=== PATIENT | male | born 1980 | race Caucasian/White ===

== ENCOUNTER 2020-05-31 00:29 | Outpatient (CLI) | payer OTHER, SELFPAY ==
[2020-05-31 18:02] LABS: SARS-CoV-2 RNA PCR Negative
== END 2020-05-31 00:30 | disposition home or self-care (01) ==
LOC: ANHCOVIDDT 00:30
PROVIDERS: PCP Internal Medicine; Visit Provider Surgery
DX: Z01.812 Encounter for preprocedural laboratory examination (principal); Z20.828 Contact with and (suspected) exposure to other viral communicable diseases
CPT/HCPCS: 87635; C9803; U0003

== ENCOUNTER 2020-06-03 00:36 | Day surgery (SDC) | payer OTHER, SELFPAY ==
[2020-05-29 15:39] VITALS: BMI 34.9
[2020-06-03] VITALS (8 sets, daily range): BP systolic 118–147; BP diastolic 70–88; PULSE 48–67; RESP 12–17; TEMP 36.3–36.4; O2SAT 98–100
[2020-06-03] MEDS: LACTATED RINGERS 1,000 ML 30 ML IV CONT ×2 (06:39→08:46)
[2020-06-03] MEDS: KETOROLAC 15 MG/ML VIAL (*BKC) IV PUSH (06:39)
[2020-06-03] MEDS: ACETAMINOPHEN 500 MG TABLET 1000 MG PO (06:39)
--- NOTE | 2020-06-03 06:56 | P.PNAN_ITS ---
Anes - Initial Pre Proc Eval Procedure: Operation Date: 06/03/20 07:30 Proposed Procedures p Rectal Exam Under Anesthesia, Possible Fistulotomy, Possible Drainage of Inderjit Anal Abscess on Right Side - Hermann Hagen MD Date/Time: 06/03/20 06:56 Surgeon: Hermann Hagen MD Pre Op Diagnosis: inderjit anal abscess Patient Data Age: 39 Gender: M Height: 6 ft 1 in Weight: 118.8 kg Last Vital Signs Temp 36.4 C 06/03/20 06:26 Pulse 67 06/03/20 06:26 Resp 16 06/03/20 06:26 BP 141/88 H 06/03/20 06:26 Pulse Ox 99 06/03/20 06:26 Allergies Allergy/AdvReac Type Severity Reaction Status Date / Time IODINE CONTRAST Allergy Mild Hives / Uncoded 06/03/20 06:19 Red Face Home Medications Medication Instructions Recorded Confirmed Type amoxicillin 875 mg-potassium 1 tablet PO Q12H #6 tablet 05/22/20 06/03/20 Rx clavulanate 125 mg tablet metronidazole 500 mg tablet 500 mg PO Q8H #21 tablet 05/22/20 06/03/20 Rx acetaminophen [Tylenol] 325 - 650 mg PO DIRECTED PRN 05/29/20 06/03/20 Histo ry Patient hx anesthesia problems: none Family hx anesthesia problems: none PMFSH Surgical History Surgical History Hx of appendectomy Family History Family History Grandparent Diabetes mellitus Social History Social History Smoking status: Never smoker Alcohol intake: current Substance use: never Spiritual care concerns: No Anes - Eval Final PreProcedure Day of Procedure 06/03/20 06:56 Patient weight: obese Heart: regular rate and rhythm Lungs: clear to auscultation Airway: Mallampati scale class II Neurological: alert and oriented Last oral intake: >/= 8 hours ASA classification: II Emergent: no Anesthetic plan: proceed Anesthesia type and monitoring: general ETT and standard monitoring Informed Consent: The patient's anesthetic plan and its attendant risks and benefits were discussed with the patient/family/POA. Questions were solicited and answers provided to the satisfaction of the patient/family/POA.
--- NOTE | 2020-06-03 07:24 | WPDHPUPDATE1 ---
History and Physical Update Update Date/Time: 06/03/20 07:24 History and Physical has been reviewed, including an updated exam of the patient. There are NO changes in the patient's condition. Risks, benefits, and alternatives have been discussed and questions answered. Patient agrees to proceed with procedure.
[2020-06-03] MEDS: ceFAZolin 2 GM/D5W 50 ML 2 GM/50 ML BAG IVPB (07:29)
[2020-06-03] MEDS: BUPIVACAINE/EPINEPHRINE 0.5% 10 ML VIAL 30 ML INFILTRATE (08:02)
[2020-06-03] MEDS: METHYLENE BLUE 0.5% INJ 10 ML AMPULE 20 ML IRRIGATION (08:03)
--- NOTE | 2020-06-03 08:49 | PM.PROC ---
Procedure Note - Detailed Date of procedure: 06/03/20 Pre-op diagnosis: inderjit anal abscess Perianal abscess possible right-sided fistula Post-op diagnosis: other (Right perianal fistula) Procedure performed: Examination under anesthesia and anal fistulotomy x1 Description of procedure: Patient was brought to the operating room and placed in the lithotomy position after induction of adequate general anesthesia by the [place] anesthesia. Time-out was performed confirming patient and site of surgery being the anal area. Following this I did a complete external and internal examination externally the patient still had a small opening draining a small amount of yellowish pus about the 10 o'clock position right lateral area. Internally there was no significant internal hemorrhoids no obvious internal opening of the fistula at the time I examined the area circumferentially. Following this I have placed a rectal retractors in and expanded this exposing the right side of the anal opening. Following this using a 18 gauge Angiocath plastic catheter on a 10 cc syringe with half-strength methylene blue I inserted the catheter into the opening that is external about 2 cm distal to the dentate line. The 1st time I tried injecting it just came back at us. In time we are repositioned so that I could see a little bit more anteriorly on the internal surface of the rectum at this time I could see a small trail of bluish dye coming from the mucosal surface. Following this I used a rectal probe to insert into the opening and placed the right to area of the gland internally where the blue dye head extruded. I then used Bovie cautery to completely open the fistula using cutting cautery current cutting down to the probe that was within the tunnel of the fistula. We opened this completely from outside to inside. Hemostasis was achieved. Local anesthetic using 0.5% Marcaine was injected along the tract and deep to the tract. We waited for 2 minutes every checked and hemostasis still seemed to be good and I felt that this surgery is complete. Estimated blood loss approximately 2 cc. Patient was taken recovery room in good condition. Implants: None Anesthesia: GETA Surgeon: Hermann Hagen MD Scrum Project Manager: KYRA Leiva, OR 1st assist Estimated blood loss (mL): 2 Drains: No Packing: No Pathology: none sent Complications: No immediate complications Condition: stable Disposition: PACU Findings: The opening on the right side of the anal skin connected by a tunnel to an anal gland in the right anterior position. (Fistulotomy was performed).
== END 2020-06-03 10:25 | disposition home or self-care (01) ==
PROVIDERS: PCP Internal Medicine; Visit Provider Surgery
PROC: (CPT 46270; principal; 2020-06-03 07:30)
DX: K60.3 Anal fistula (principal)
CPT/HCPCS: 46270; 87635; A9270; C9803; J0690; J1100; J1885; J2250; J2405; J2704; J7120; Q9968; U0003

== ENCOUNTER 2020-07-13 19:09 | Emergency (ER) | payer OTHER, SELFPAY ==
--- NOTE | ~2020-07-13 | XR_ITS ---
EXAMINATION: XR chest 2V DATE: 07/13/2020 20:02 INDICATION: Near syncope. TECHNIQUE: Frontal and lateral views of the chest were obtained. COMPARISON: Chest single view 01/03/2009 FINDINGS: The chest demonstrates clear lungs without pneumonia, pleural effusion, or pneumothorax. Th e heart size is normal. IMPRESSION: 1. No acute cardiopulmonary disease. Reviewed, dictated and finalized at location A. ICAL DOCUMENTATION CLERK
[2020-07-13 19:12] VITALS: BP 148/86; PULSE 62; RESP 20; TEMP 36.2; O2SAT 100
--- NOTE | 2020-07-13 19:29 | ED.GENADULT ---
HPI - General Adult General Chief complaint: Unspecified Stated complaint: doesn't feel well Time Seen by Provider: 07/13/20 19:29 Source: patient Mode of arrival: ambulatory Limitations: no limitations History of Present Illness HPI narrative: Patient is a 39-year-old male with a history of recurrent abscess, fistula, who presents for evaluation lightheadedness, near syncopal event. Patient reportedly was in the car driving home with his family from his son soccer game when he suddenly became lightheaded, nauseated, had a feeling of cold run from his feet into his head. Patient denied overt chest pain, states he did feel slightly short of breath and anxious before symptoms resolved on their own for approximately 1 minute. Patient states he felt lightheaded and like he may pass out but did not ever lose consciousness. Patient reports he has a history of anxiety, he was recently placed on duloxetine by his primary care physician on Wednesday. Patient denies any recent illnesses. Patient also taking Flagyl for recurrent abscesses for which he follows with Dr. Hagen. Patient denies any fever, chills, chest pain. He denies current shortness of breath. He denies history of heart problems. He denies any lower extremity pain, swelling, numbness. Patient denies current headache or vision changes. No difficulty with ambulation. Related Data Home Medications Medication Instructions Recorded Confirmed acetaminophen [Tylenol] 325 - 650 mg PO DIRECTED PRN 05/29/20 07/09/20 zolpidem 07/13/20 Allergies Allergy/AdvReac Type Severity Reaction Status Date / Time IODINE CONTRAST Allergy Mild Hives / Uncoded 07/09/20 09:02 Red Face Review of Systems Review of Systems: Narrative: CONSTITUTIONAL: Denies fever, chills, or sweats. EYES: Denies visual changes, redness, or discharge. ENT: Denies rhinorrhea, congestion, sore throat, or otalgia. CARDIOVASCULAR: Denies chest pain, reports palpitations with earlier episode, denies leg edema RESPIRATORY: Denies cough or dyspnea. GASTROINTESTINAL: Denies abdominal pain, reports earlier nausea, now resolved GENITOURINARY: Denies dysuria or hematuria. SKIN: Denies rash or itching. MUSCULOSKELETAL: Denies back pain, joint pain, or myalgia. NEUROLOGIC: Denies headache, numbness, or weakness. PSYCHIATRIC: Reports history of anxiety PMFSH Past Medical History Medical History Anal fistula Surgical History Surgical History Hx of appendectomy Perianal abscess Family History Family History (Reviewed 07/09/20 @ 09:02 by Holly Taveras [facility]) Grandparent Diabetes mellitus Social History Social History (Reviewed 07/09/20 @ 09:02 by Holly Taveras [facility]) Alcohol intake: current Substance use: never Gender identity (if verbalized by the patient): Male Spiritual care concerns: No Exam Narrative: Exam Narrative: GENERAL: Awake, alert, conversant, anxious HEAD: Normocephalic, atraumatic. EYES: PERRLA and EOMI. ENT: Nares clear, no rhinorrhea or epistaxis. Mucous membranes moist. NECK: Supple. CHEST: No respiratory distress, breathing even and non labored HEART: Regular rate, sinus rhythm ABDOMEN:Non distended, non tender EXTREMITIES: Normal range of motion. No edema. SKIN: Warm, dry, no rash. NEURO:No focal deficits. Alert and oriented x3. Finger to nose intact bilaterally. EOMs intact without nystagmus. No facial droop/asymmetry noted bilaterally. Grimace intact. Intact sensation in face. Hearing intact bilaterally. Shoulder shrug intact. Strength 5/5 bilateral upper extremities. Strength 5/5 bilateral lower extremities. Reflexes 2+ patellar. Heel to marquez intact bilaterally. Ambulatory with a narrow based, steady gait, no ataxia. Course Vital Signs Vital signs: Vital Signs Temperature 36.2 C L 07/13/20 19:12 Pulse Rate 62 07/13/20 19:12 Respiratory Rate
--- NOTE | 2020-07-13 19:45 | ECG_ITS ---
Measurements Intervals [place] Rate: 56 P: 21 [place]: 157 QRS: 11 QRSD: 119 T: 27 QT: 427 QTc: 415 Interpretive Statements SINUS BRADYCARDIA INTRAVENTRICULAR CONDUCTION DELAY NONSPECIFIC T-WAVE ABNORMALITY- ANTEROLATERAL LEADS BASELINE WANDER- I, II, III, AVL, AVF, V1-V3 BORDERLINE ECG Electronically Signed On 07-14-2020 7:53:43 [employer] by Gaurav Garcia D.O.
--- NOTE | 2020-07-13 20:24 | PC.NURSE ---
Patient's bedside glucose is 105.
[2020-07-13 20:29] LABS: Glucose Point of Care 105 (65-105)
[2020-07-13 20:40] LABS: Basophils Absolute Auto 0.1 K/mm3 (0.0-0.1); Basophils Percent Auto 0.6 % (0.2-1.2); Eosinophils Absolute Auto 0.1 K/mm3 (0-0.3); Hematocrit 44.3 % (42.0-52.0); Hemoglobin 15.4 g/dL (14.0-18.0); Immature Granulocyte Absolute 0.04 K/mm3 (0.00-0.031); Immature Granulocyte Percent A 0.5 % (0-0.5); Lymphocytes Absolute Auto 2.19 K/mm3 (0.9-3.2); Lymphocytes Percent Auto 28.2 % (18.3-44.2); Mean Corpuscular HGB Conc 34.8 g/dl (32-36); Mean Corpuscular Hemoglobin 29.3 pg (26-34); Mean Corpuscular Volume 84.4 fl (80-100); Mean Platelet Volume 11.2 fl (7.4-10.4); Monocytes Absolute Auto 0.5 K/mm3 (0.1-0.6); Monocytes Percent Auto 6.6 % (2.6-8.5); Neutrophils Absolute Auto 4.9 K/mm3 (1.3-6.7); Neutrophils Percent Auto 63.1 % (45.5-73.1); Platelet Count Result 222 k/mm3 (150-375); Red Blood Count 5.25 M/mm3 (4.6-6.20); Red Cell Distribution Width 13.1 % (11.5-14.5); White Blood Count 7.8 K/mm3 (4.5-10.0)
[2020-07-13 20:45] LABS: INR 1.1; Prothrombin Time 14.5 Seconds (11.1-14.7)
[2020-07-13 20:46] LABS: Partial Thromboplastin Time 30.5 SECONDS (22.3-36.8)
[2020-07-13 20:47] LABS: Anion Gap 13 mmol/L (8-16); Blood Urea Nitrogen 10 mg/dL (9-20); Calcium 9.5 mg/dL (8.4-10.2); Carbon Dioxide 25 mmol/L (22-30); Chloride 103 mmol/L (98-107); Estimated CRCL calculation 125 ml/min; Estimated Glomerular Filt Rate > 60; Glucose 111 mg/dL (75-110); Potassium 3.4 mmol/L (3.4-5.0); Sodium 141 mmol/L (137-145)
[2020-07-13 20:58] LABS: D Dimer 0.27 ug/mL (<0.48); Troponin I < 0.012 ng/mL (0.000-0.034)
[2020-07-13 21:43] VITALS: BP 127/70; PULSE 49; RESP 22; O2SAT 97
[2020-07-13 22:49] LABS: Troponin I < 0.012 ng/mL (0.000-0.034)
[2020-07-13 23:40] VITALS: BP 110/67; PULSE 55; RESP 20; O2SAT 97
== END 2020-07-13 23:35 | disposition home or self-care (01) ==
PROVIDERS: Emergency Provider Emergency Medicine; PCP Internal Medicine
DX: R42 Dizziness and giddiness (principal); R55 Syncope and collapse; R00.1 Bradycardia, unspecified; I45.9 Conduction disorder, unspecified; R94.31 Abnormal electrocardiogram [ECG] [EKG]
CPT/HCPCS: 36415; 71046; 80048; 82948; 84484; 85025; 85380; 85610; 85730; 93005; 99284

== ENCOUNTER 2022-08-10 15:52 | Emergency (ER) | payer OTHER, SELFPAY ==
[2022-08-10 15:59] VITALS: BP 144/97; PULSE 64; RESP 18; TEMP 36.2; O2SAT 100
[2022-08-10 16:26] VITALS: BP 154/89; PULSE 74
[2022-08-10 16:26] LABS: Glucose Point of Care 266 mg/dl (65-105)
[2022-08-10 16:27] VITALS: BP 156/92; PULSE 82
[2022-08-10 16:28] VITALS: BP 171/95; PULSE 67
--- NOTE | 2022-08-10 16:56 | ED.DIZZY ---
HPI - Dizziness General Chief Complaint: Dizziness Stated Complaint: LIGHT HEADED Time Seen by Provider: 08/10/22 16:20 Source: patient Mode of arrival: ambulatory Limitations: no limitations History of Present Illness HPI Narrative: Mr. Perez is a 41-year-old male patient presenting to the clinic today with complaints nasal congestion and lightheadedness/near syncope that started this morning. He also notes that he has been fatigued. States he was at work when he felt lightheaded and had to sit down. States he only eats 1 meal per day. He did drink a large soda today. No history of diabetes or hypertension. Blood pressure is 154/89 and 171/95 in the clinic today. He denies any shortness of breath, chest pain, headache, or visual changes. The only medication he is currently taking is Cymbalta. Related Data Allergies Allergy/AdvReac Type Severity Reaction Status Date / Time IODINE CONTRAST Allergy Mild Hives / Uncoded 08/10/22 16:37 Red Face Review of Systems Review of Systems: Pertinent positives per HPI. Patient denies any fever, chills, rash, headache, visual changes, cough, runny nose, sore throat, shortness of breath, chest pain, palpitations, nausea, vomiting, diarrhea, constipation, abdominal pain, or any urinary issues. [facility] Past Medical History Medical History Anal fistula Surgical History Surgical History Hx of appendectomy Perianal abscess Family History Family History Grandparent Diabetes mellitus Social History Social History Smoking status: Never smoker Alcohol intake: current Substance use: never Additional occupation/education comments: school principle Gender identity (if verbalized by the patient): Male Spiritual care concerns: No Comments At the time of my signature, I reviewed and agree with the nursing past medical, surgical, social, and family history. There is no relevant family history pertinent to the patient complaint. Exam Narrative: General: Well-developed, well nourished, in no apparent distress Head: Normocephalic, atraumatic Eyes: Pupils equally round and reactive to light bilaterally, EOM intact, sclera and conjunctive clear, no discharge, lids normal Ears: TMs intact and dull, ear canals clear, no drainage, grossly hearing normal. Nose: Nares patent, clear nasal discharge, no inflammation, no sinus tenderness. Mouth: Oropharynx without lesions or masses, good dentition, MMM. Tongue midline, even rise and fall of uvula Neck: Supple, trachea midline, no enlargement of anterior or posterior cervical nodes, no thyroid masses or goiter palpable. Cardio: Regular rate and rhythm, s1 and s2 normal, no murmur appreciated. Resp: Clear to auscultation bilaterally anteriorly and posteriorly, no rhonchi, rales, wheezing or rubs Musculoskeletal: No deformity, non-tender to palpation, grossly normal range of motion, muscle strength strong and equal, peripheral pulse strong, no edema, no cyanosis, normal gait and station Neuro: Alert and oriented x4 with normal speech, no focal deficits, cranial nerves I through XII intact, muscle strength 5 out of 5, sensation intact bilaterally Course Course Emergency Course: Portions of this record may have been created with voice recognition software. Level of Care: Express Care Visit Vital Signs Vital signs: Vital Signs Pulse Rate 74 08/10/22 16:26 Blood Pressure 154/89 H 08/10/22 16:26 Pulse Rate 67 08/10/22 16:28 Blood Pressure 171/95 H 08/10/22 16:28 Vital signs reviewed Transfer Transfered to: [place] Transportation: Other (Private car) Transfer rationale: New onset diabetes/hypertension/lightheadedness/fatigue/hyperglycemia/proteinuria/glycosuria Accepting physician: Kyara
== END 2022-08-10 17:00 | disposition short-term general hospital (02) ==
PROVIDERS: Emergency Provider Nurse Practitioner Family
DX: R73.9 Hyperglycemia, unspecified (principal); R80.9 Proteinuria, unspecified; R82.4 Acetonuria; R03.0 Elevated blood-pressure reading, without diagnosis of hypertension
CPT/HCPCS: 81003; 82948; 99212; G0463

== ENCOUNTER 2024-03-28 10:05 | Emergency (ER) | payer OTHER, SELFPAY ==
[2024-03-28 10:15] VITALS: BP 142/91; PULSE 57; RESP 16; TEMP 36.5; O2SAT 100
--- NOTE | 2024-03-28 10:25 | ED.GENADULT ---
HPI - General Adult General Chief complaint: Urogenital-Male Stated complaint: URINARY PRESSURE Time Seen by Provider: 03/28/24 10:27 Source: patient, RN notes reviewed and old records reviewed Mode of arrival: ambulatory Limitations: no limitations History of Present Illness HPI narrative: 43-year-old male to Express Care for complaint of lower right quadrant pain radiating to right flank, urinary pressure, urinary urgency, urinary retention x2 days. Patient endorses history of kidney stone to right side. Patient denies fever, nausea, vomiting, bowel changes, urinary incontinence, hematuria, chest pain, shortness of breath. Patient able to tolerate fluids by mouth. Patient hypertensive in triage; patient endorses history of hypertension. Respirations even and nonlabored. Patient in no acute distress. Related Data Home Medications Medication Instructions Recorded Confirmed blood sugar diagnostic (True 09/11/22 03/13/24 Metrix Glucose Test Strip) Allergies Allergy/AdvReac Type Severity Reaction Status Date / Time IODINE CONTRAST Allergy Mild Hives / Uncoded 10/12/23 13:58 Red Face Review of Systems Review of Systems: All systems reviewed & are unremarkable except as noted in HPI and below Constitutional: Constitutional: Reports no additional constitutional complaints Eyes: Eyes: Reports no additional eye complaints ENT: Reports system reviewed and no additional complaints, except as documented Cardiovascular: Cardiovascular: Reports no additional cardiovascular complaints, Denies chest pain and Denies dyspnea Respiratory: Respiratory: Reports no additional respiratory complaints, Denies cough and Denies dyspnea Gastrointestinal: Gastrointestinal: Reports as per HPI, Reports abdominal pain ( LRQ), Denies constipation, Denies diarrhea, Denies nausea and Denies vomiting Genitourinary: Genitourinary: Reports as per HPI, Denies hematuria, Reports flank pain ( right), Reports urinary frequency, Denies urinary incontinence and Reports urinary urgency Musculoskeletal: Musculoskeletal: Reports no additional musculoskeletal complaints Neurologic: Reports system reviewed and no additional complaints, except as documented Psychiatric: Psychiatric: Reports no additional psychiatric complaints PMFSH Past Medical History Medical History Anal fistula Anxiety Diabetes Dyslipidemia HTN (hypertension) Transaminitis Surgical History Surgical History Hx of appendectomy Perianal abscess Family History Family History Grandparent Diabetes mellitus Social History Social History Smoking status: Never smoker Alcohol intake: current Alcohol use details: rarely Substance use: current Other substance usage details: Gummies Last use: 3 mths ago - to relax Lack of Transportation: No Lack of Food: Never True Current Housing: I Have Housing Concerned About Future Housing: No Difficulty Paying Gas/Electric Bills: No Difficulty Paying for Meds: No Currently Unemployed: No Difficulty w/ Childcare or Family Care: No Living arrangements: with family Occupation/Education: occupation Additional occupation/education comments: school principle Gender identity (if verbalized by the patient): Male Spiritual care concerns: No Comments At the time of my signature, I reviewed and agree with the nursing past medical, surgical, social, and family history. There is no relevant family history pertinent to the patient complaint. Exam Const: General: cooperative, no acute distress, alert, uncomfortable, well groomed and well nourished Nutritional Appearance: well nourished Orientation/consciousness: patient oriented x3 Limitations: no limitations
[2024-03-28 11:00] LABS: EDUAAPPEAR Cloudy; EDUABILI Negative; EDUABLOOD 3+; EDUACOLOR1 Dark; EDUAGLUCOSE Negative; EDUAKETONE Negative; EDUALEUKO Negative; EDUANITRATE Negative; EDUAPH 5.5; EDUAPROTEIN 1+; EDUASPGRAVITY 1.025; EDUAUROBILI 0.2
== END 2024-03-28 10:50 | disposition home or self-care (01) ==
PROVIDERS: Emergency Provider Nurse Practitioner Family
DX: R39.15 Urgency of urination (principal); R10.9 Unspecified abdominal pain; Z87.442 Personal history of urinary calculi; E11.9 Type 2 diabetes mellitus without complications; E78.5 Hyperlipidemia, unspecified; I10 Essential (primary) hypertension
CPT/HCPCS: 81003; 87086; 99213; G0463

== ENCOUNTER 2024-04-11 06:50 | Day surgery (SDC) | payer OTHER, SELFPAY ==
[2024-03-31 08:33] VITALS: BMI 35.9
--- NOTE | 2024-04-04 12:49 | PM.HPGS ---
History of Present Illness History of Present Illness Consent: Risks, benefits, and alternatives have been discussed and questions answered. Patient agrees to proceed with procedure. Chief complaint: Screening for Neoplasm of Colon Narrative: Jack Perez III is a 43 year old male who is referred for colon cancer screening. Review of Systems Review of Systems: All systems reviewed & are unremarkable except as noted in HPI and below PMFSH Past Medical History Medical History Anal fistula Anxiety Diabetes Dyslipidemia HTN (hypertension) Transaminitis Surgical History Surgical History Hx of appendectomy Perianal abscess Family History Family History Grandparent Diabetes mellitus Social History Social History Smoking status: Never smoker Alcohol intake: current Alcohol use details: rarely Substance use: never Substance use type: does not use Other substance usage details: Gummies Last use: 3 mths ago - to relax Lack of Transportation: No Lack of Food: Never True Current Housing: I Have Housing Concerned About Future Housing: No Difficulty Paying Gas/Electric Bills: No Difficulty Paying for Meds: No Currently Unemployed: No Difficulty w/ Childcare or Family Care: No Living arrangements: with family Occupation/Education: occupation Additional occupation/education comments: school principle Gender identity (if verbalized by the patient): Male Spiritual care concerns: No Meds Home Medications and Allergies Home Medications Medication Instructions Recorded Confirmed Type blood sugar diagnostic (True 09/11/22 03/13/24 History Metrix Glucose Test Strip) atorvastatin 40 mg tablet 40 mg PO QHS #90 tabs 02/29/24 04/11/24 Rx duloxetine 30 mg capsule,delayed 30 mg PO DAILY #90 caps 03/08/24 04/11/24 Rx release lisinopril 10 mg tablet 10 mg PO DAILY #90 tabs 03/08/24 04/11/24 Rx metformin 500 mg tablet,extended 1,000 mg PO BID #360 tabs 03/22/24 04/11/24 Rx release 24 hr cephalexin 500 mg capsule 500 mg PO Q12H #14 caps 03/28/24 04/11/24 Rx Allergies Allergy/AdvReac Type Severity Reaction Status Date / Time IODINE CONTRAST Allergy Mild Hives / Uncoded 04/11/24 07:13 Red Face Exam Resp: Auscultation: clear to auscultation bilaterally Cardio: Rate: regular rate Rhythm: regular rhythm GI: GI Palp: Yes Soft to palpation and No Tenderness to palpation present (GI) Assessment and Plan Assessment and plan (1) Colon cancer screening: Code(s): Z12.11 - Encounter for screening for malignant neoplasm of colon Status: Acute Assessment and Plan: Colonoscopy with possible biopsy or polypectomy or cautery or injection of substances.
[2024-04-05 10:14] VITALS: BMI 35.4
--- NOTE | 2024-04-11 06:41 | P.PNAN_ITS ---
Anes - Initial Pre Proc Eval Procedure: Operation Date: 04/11/24 08:30 Proposed Procedures p Screening Colonoscopy - Harjit Campoverde MD Date/Time: 04/11/24 06:41 Surgeon: Harjit Campoverde MD Pre Op Diagnosis: Screening for Neoplasm of Colon Patient Data Age: 43 Gender: M Height: 1.88 m Weight: 125 kg Allergies Allergy/AdvReac Type Severity Reaction Status Date / Time IODINE CONTRAST Allergy Mild Hives / Uncoded 04/11/24 07:13 Red Face Home Medications Medication Instructions Recorded Confirmed Type blood sugar diagnostic (True 09/11/22 03/13/24 History Metrix Glucose Test Strip) atorvastatin 40 mg tablet 40 mg PO QHS #90 tabs 02/29/24 04/11/24 Rx duloxetine 30 mg capsule,delayed 30 mg PO DAILY #90 caps 03/08/24 04/11/24 Rx release lisinopril 10 mg tablet 10 mg PO DAILY #90 tabs 03/08/24 04/11/24 Rx metformin 500 mg tablet,extended 1,000 mg PO BID #360 tabs 03/22/24 04/11/24 Rx release 24 hr cephalexin 500 mg capsule 500 mg PO Q12H #14 caps 03/28/24 04/11/24 Rx Patient hx anesthesia problems: none Family hx anesthesia problems: none Results Review: All pre-operative results and documents have been reviewed as part of the pre-op erative evaluation. [facility], [facility] Past Medical History Medical History Anal fistula Anxiety Diabetes Dyslipidemia HTN (hypertension) Transaminitis Surgical History Surgical History Hx of appendectomy Perianal abscess Family History Family History Grandparent Diabetes mellitus Social History Social History Smoking status: Never smoker Alcohol intake: current Alcohol use details: rarely Substance use: never Substance use type: does not use Other substance usage details: Gummies Last use: 3 mths ago - to relax Lack of Transportation: No Lack of Food: Never True Current Housing: I Have Housing Concerned About Future Housing: No Difficulty Paying Gas/Electric Bills: No Difficulty Paying for Meds: No Currently Unemployed: No Difficulty w/ Childcare or Family Care: No Living arrangements: with family Occupation/Education: occupation Additional occupation/education comments: school principle Gender identity (if verbalized by the patient): Male Spiritual care concerns: No Anes - Eval Final PreProcedure Day of Procedure 04/11/24 06:41 Patient weight: obese Heart: regular rate and rhythm Lungs: clear to auscultation Airway: Mallampati scale class II Neurological: alert and oriented Last oral intake: >/= 8 hours ASA classification: III Emergent: no Anesthetic plan: proceed Anesthesia type and monitoring: general GIVS and standard monitoring Results Review: All pre-operative results and documents have been reviewed as part of the pre- operative evaluation. Informed Consent: The patient's anesthetic plan and its attendant risks and benefits were dis cussed with the patient/family/POA. Questions were solicited and answers provided to the satisfaction of the patient/family/POA.
[2024-04-11 07:15] VITALS: BP 133/86; PULSE 60; RESP 18; TEMP 36.9; O2SAT 100
[2024-04-11] MEDS: LACTATED RINGERS 1,000 ML 150 ML IV CONT (07:22)
[2024-04-11 07:30] LABS: Glucose Point of Care 122 mg/dl (65-105)
[2024-04-11 08:29] VITALS: BP 99/62; PULSE 60; RESP 18; O2SAT 97
[2024-04-11 08:39] VITALS: BP 102/63; PULSE 63; RESP 15; O2SAT 98
[2024-04-11 08:49] VITALS: BP 123/87; PULSE 53; RESP 17; O2SAT 99
--- NOTE | 2024-04-11 11:11 | WPDANESPN ---
Anes - Prog Note Post-Op Date/Time: 04/11/24 11:11 Cardiovascular status: normal Respiratory status: normal Airway patency: baseline Mental status: baseline Post-Op hydration status: normal Vital Signs: Last Vital Signs Temp 36.9 C 04/11/24 07:15 Pulse 53 L 04/11/24 08:49 Resp 17 04/11/24 08:49 BP 123/87 04/11/24 08:49 Pulse Ox 99 04/11/24 08:49 O2 Del Method Room Air 04/11/24 08:49 Pain Score (VAS): 0 I/O: Intake & Output 04/10/24 04/11/24 04/11/24 23:59 07:59 15:59 Intake Total 200 Balance 200 04/11/24 07:25 POC Capillary Glucose 122 H Post-procedural complaints: none Patient Feedback: Patient satisfied with anesthetic care. Other Findings: Patient vital signs back to baseline. Patient denies nausea and vomiting. Patient's pain under control. Patient OK for discharge.
== END 2024-04-11 09:11 | disposition home or self-care (01) ==
PROVIDERS: PCP Physician Assistant Medical; Visit Provider Internal Medicine Gastroenterology
PROC: 0DJD8ZZ Inspection of Lower Intestinal Tract, Via Natural or Artificial Opening Endoscopic (ICD-10-PCS; CPT 45378; principal; 2024-04-11 08:30)
DX: Z12.11 Encounter for screening for malignant neoplasm of colon (principal); D12.5 Benign neoplasm of sigmoid colon; K57.30 Diverticulosis of large intestine without perforation or abscess without bleeding
CPT/HCPCS: 45385

== ENCOUNTER 2024-04-11 07:41 | Outpatient (NON) | payer OTHER, SELFPAY | END 2024-04-11 07:42 | disposition home or self-care (01) | PROVIDERS: Visit Provider Internal Medicine Gastroenterology | DX: Z12.11 Encounter for screening for malignant neoplasm of colon (principal); K63.5 Polyp of colon | CPT/HCPCS: 88305 ==